=== PATIENT | female | born 1945 | race Caucasian/White ===

== ENCOUNTER 2016-09-21 20:38 | Emergency (ER) | payer OTHER ==
[2016-09-21 21:04] VITALS: BP 142/89; BMI 35.4
[2016-09-21] MEDS ORDERED: ZOFRAN INJ 4 MG VIAL IM ONE ×2 (22:20→23:14)
--- NOTE | 2016-09-21 22:23 | DR.GENAD ---
HPI - PCP Primary Care Physician: AUTUMN - HPI Comment HPI Comment: Started coughing intermittently 2-3 days ago with temp up to 101 today as well as sudden onset of n/v today which has persisted; no diarrhea or signficant abd pain; she is to start another round of chemo for nsclc tomorrow and s/w Dr Saul who advised her to come and have blood work. - Complaint/Symptoms Chief Complaint:: FEVER, THROWING UP Self Treatment fo Chief Complaint: TOOK TYLENOL APPROX ONE HOUR AGO - Source History Provided: Patient - Mode of Arrival Mode of Arrival: Ambulatory - Timing Onset of Chief Complaint: 09/21/16 PMH - PMH Past Medical History: Yes Past Medical History: Anxiety, Depression, Hypertension, Migraines Past Medical History Comment: CHEMO AND RADIATION FOR LUNG CANCER Past Surgical History: Yes Surgical History: Thyroidectomy - Family History History of Family Medical Conditions: Yes Family Medical History: Hypertension - Social History Does patient currently use any type of tobacco product: No Have you used tobacco products in the last 12 months: No Type of Tobacco Use: None Does any household member use tobacco: No Alcohol Use: None Do you use any recreational Drugs:: No Lives With: Alone Lives Where: Home - infectious screening In the last 2 months have you had wt loss of >10#?: NO Have you had fever, night sweats or hemotysis?: No Have you traveled outside the country in the last 6 months?: No Isolation: Standard PE - Vital Signs Vitals: Temperature 99.1 F Pulse Rate 97 Respiratory Rate 18 Blood Pressure [Left Arm] 137/77 Blood Pressure [Right Arm] 128/61 Blood Pressure 142/89 O2 Sat by Pulse Oximetry 97 Course - Reevaluation 1st: Improved (pt has held down kcl and wishes to go home) - Consultation Called: 23:16 Consultation Comments: Dr Saul prefers pt get ua/bc x 2 with addition of levaquin 500mg po x 10days as well as potassium repletion. ROR - Labs Reviewed Result Diagrams: 09/21/16 22:30 09/21/16 22:30 Laboratory: WBC 7.3 X10^3/uL (3.6-10.0) 09/21/16 22:30 RBC 3.86 X10^6/uL (3.5-5.4) 09/21/16 22:30 Hgb 12.2 g/dL (12.0-16.0) 09/21/16 22: Hct 35.7 % (36.0-47.0) L 09/21/16: MCV 92.6 fL (80.0-100.0) 09/21/16: MCH 31.6 pg (27.0-34.0) 09/21/16: MCHC 34.1 g/dL (33.0-35.0) 09/21/16: RDW 17.9 % (11.6-16.5) H 09/21/16:30 Plt Count 143 X10^3/uL (150.0-450.0) L 09/21/16: MPV 8.0 fL (7.4-11.0) 09/21/16: Neut % 83.8 % (42.0-75.0) H 09/21/16: Lymph % 8.3 % (21.0-51.0) L 09/21/16: [place] % 6.6 % (0.0-13.0) 09/21/16 22: Eos % 0.8 % (0.9-2.9) L 09/21/16: Baso % 0.5 % (0.2-1.0) 09/21/16:30 Neut # 6.1 x10^3/uL (2.2-4.8) H 09/21/16: Lymph # 0.6 X10^3/uL (1.3-2.9) L 09/21/16 22:30 [place] # 0.5 x10^3/uL (0.3-0.8) 09/21/16: Eos # 0.1 x10^3/uL (0.0-0.2) 09/21/16: Baso # 0.0 X10^3/uL (0.0-0.1) 09/21/16: Absolute Nucleated RBC 0.1 /100WBC 09/21/16 22: Sodium 140 mmol/L (136-145) 09/21/16: Corrected Sodium 140 mmol/L (136-145) 09/21/16 22:30 Potassium 2.6 mmol/L (3.5-5.1) L* 09/21/16 22:30 Chloride 99 mmol/L (98-107) 09/21/16 22:30 Carbon Dioxide 31.8 mmol/L (21-32) 09/21/16 22:30 BUN 13 mg/dL (7-18) 09/21/16 22:30 Creatinine 0.74 mg/dL (0.55-1.02) 09/21/16 22:30 Est GFR (MDRD) Af Amer > 60 (>60) 09/21/16 22:30 Est GFR (MDRD) Non-Af > 60 (>60) 09/21/16 22:30 Glucose 118 mg/dL (65-99) H 09/21/16 22:30 Calcium 8.8 mg/dL (8.5-10.1) 09/21/16 22:30 Corrected Calcium TNP 09/21/16 22:30 Total Bilirubin 1.60 mg/dL (0.2-1.0) H 09/21/16 22:30 AST 59 Units/L (15-37) H 09/21/16 22:30 ALT 38 Units/L (12-78) 09/21/16 22:30 Alkaline Phosphatase 111 Units/L (46-116) 09/21/16 22:30 Total Protein 7.5 g/dL (6.4-8.2) 09/21/16 22:30 Albumin 3.4 g/dL (3.4-5.0) 09/21/16 22:30 Globulin 4.1 g/dL (2.5-4.5) 09/21/16 22:30 Albumin/Globulin Ratio 0.8 Ratio (1.1-2.1) L 09/21/16 22:30 - Diagnosis Discharge Problem: Hypokalemia, Non-small cell lung cancer (NSCLC) Nausea & vomiting Qualifiers: Vomiting type: cyclical vomiting Vomiting Intractability: non-intractable Qualified Code(s): G43.A0 - Cyclical vomiting, not intractable - Discharge Plan Disposition: 01 HOME, SELF-CARE Condition: Stable Prescriptions: Levofloxacin [Levaquin] 500 mg PO Q24H #10 tab Ondansetron [Zofran Odt] 4 mg PO Q6H PRN #14 tab PRN Reason: - Follow ups/Referrals Follow ups/Referrals: SAMSON LEYVA [Primary Care Provider] - 3 days - Instructions Instructions: Nausea, Adult Additional Instructions: push fluids follow up with Dr Saul Thursday as scheduled try to take potassium tonight when you get home and again in the morning Additional Notes - Additional Notes Additional Notes: released home as pt felt better and was not throwing up; fup this morning with Dr Crandall as scheduled
[2016-09-21] MEDS ORDERED: ZOFRAN INJ 4 MG VIAL ONE ×2 (22:32→23:14)
[2016-09-21 22:39] LABS: BASOPHILS % (AUTO) 0.5 % (0.2-1.0); EOSINOPHILS # (AUTO) 0.1 x10^3/uL (0.0-0.2); EOSINOPHILS % (AUTO) 0.8 % (0.9-2.9); HEMATOCRIT 35.7 % (36.0-47.0); HEMOGLOBIN 12.2 g/dL (12.0-16.0); LYMPHOCYTES # (AUTO) 0.6 X10^3/uL (1.3-2.9); LYMPHOCYTES % (AUTO) 8.3 % (21.0-51.0); MEAN CORPUSCULAR HEMOGLOBIN 31.6 pg (27.0-34.0); MEAN CORPUSCULAR HGB CONC 34.1 g/dL (33.0-35.0); MEAN CORPUSCULAR VOLUME 92.6 fL (80.0-100.0); MONOCYTES # (AUTO) 0.5 x10^3/uL (0.3-0.8); MONOCYTES % (AUTO) 6.6 % (0.0-13.0); NEUTROPHILS # (AUTO) 6.1 x10^3/uL (2.2-4.8); NEUTROPHILS % (AUTO) 83.8 % (42.0-75.0); PLATELET COUNT 143 X10^3/uL (150.0-450.0); RED BLOOD COUNT 3.86 X10^6/uL (3.5-5.4); RED CELL DISTRIBUTION WIDTH 17.9 % (11.6-16.5); WHITE BLOOD COUNT 7.3 X10^3/uL (3.6-10.0)
[2016-09-21 22:44] LABS: BLOOD UREA NITROGEN 13 mg/dL (7-18); CALCIUM 8.8 mg/dL (8.5-10.1); CARBON DIOXIDE 31.8 mmol/L (21-32); CHLORIDE 99 mmol/L (98-107); COR NA(FOR HYPERGLY) 140 mmol/L (136-145); CREATININE 0.74 mg/dL (0.55-1.02); GLUCOSE 118 mg/dL (65-99); SODIUM 140 mmol/L (136-145); eGFR BLACK RACES > 60 (>60); eGFR NON BLACK RACES > 60 (>60)
[2016-09-21 22:49] LABS: ALANINE AMINOTRANSFERASE 38 Units/L (12-78); ALBUMIN 3.4 g/dL (3.4-5.0); ALKALINE PHOSPHATASE 111 Units/L (46-116); ASPARTATE AMINO TRANSFERASE 59 Units/L (15-37); TOTAL PROTEIN 7.5 g/dL (6.4-8.2)
[2016-09-21] MEDS ORDERED: POTASSIUM CHLORIDE LIQ 20 MEQ UDC PO ONE (23:14)
[2016-09-21] MEDS ORDERED: POTASSIUM CHLORIDE LIQ 20 MEQ UDC ONE (23:47)
== END 2016-09-22 00:29 | disposition home or self-care (01) ==
LOC: ER 20:38
DX: C34.90 Malignant neoplasm of unspecified part of unspecified bronchus or lung (principal); E87.6 Hypokalemia; G43.A0 Cyclical vomiting, in migraine, not intractable
CPT/HCPCS: 36415; 80053; 85025; 87040; 87077; 87186; 96372; 99283; J2405

== ENCOUNTER → 2017-01-01 | Outpatient (CLI) | payer OTHER ==
--- NOTE | 2017-01-02 11:08 | MG ---
HISTORY: SCREENING Comparison: Multiple mammograms dating back to August 29, 2014. FINDINGS: Bilateral CC and MLO projections of the right and left breast were obtained. Scattered fibroglandul ar tissue is seen to be present. No significant architectural distortion, mass or clustered microca lcifications can be observed to suggest malignancy. No skin thickening or nipple retraction is appr eciated. No pathological lymphadenopathy can be identified. Benign-appearing calcifications scatte red throughout the right and left breasts are observed. IMPRESSION: NO RADIOGRAPHIC EVIDENCE OF MALIGNANCY. ACR CATEGORY: 2 - benign findings. FOLLOW-UP EXAM 1 YEAR. Diagnostic CAD was utilized and reviewed. * 0 (ZERO) - ASSESSMENT INCOMPLETE; ADDITIONAL IMAGING IS NEEDED. * 1/1 (ONE) - NEGATIVE. * 2/II (TWO) - BENIGN FINDINGS. * 3/III (THREE) - PROBABLY BENIGN FINDING; SHORT INTERVAL FOLLOW-UP SUGGESTED. * 4/IV (FOUR) - SUSPICIOUS ABNORMALITY; BIOPSY SHOULD BE CONSIDERED. * 5/V - HIGHLY SUSPICIOUS OF MALIGNANCY; BIOPSY SHOULD BE PERFORMED. A NEGATIVE X-RAY REPORT SHOULD NOT DELAY BIOPSY IF A DOMINANT OR CLINICALLY SUSPICIOUS MASS IS PRESENT; 4 TO 8 PERCENT OF CANCERS ARE NOT IDENTIFIED BY X-RAY. A NEG ATIVE REPORT MAY REINFORCE THE CLINICAL IMPRESSION. ADENOSIS AND DENSE BREASTS MAY OBSCURE AN UNDER LYING NEOPLASM. Reported By:
== END ==
LOC: RAD 10:50
PROVIDERS: ATTEND Nurse Practitioner Family
DX: Z12.31 Encounter for screening mammogram for malignant neoplasm of breast (principal)
CPT/HCPCS: 77067

== ENCOUNTER 2017-02-28 21:06 | Emergency (ER) | payer OTHER ==
[2017-02-28 21:15] VITALS: BP 158/74; BMI 31.5
--- NOTE | 2017-02-28 21:40 | DR.EXTPAIN ---
HPI - Time seen Time seen: 21:40 - PCP Primary Care Physician: SAMSON Owen [place] - HPI Comment HPI Comment: WORSE TONIGHT. HAVE LUNG CANCER WITH RECENT TREATMENT. NO TRAUMA. COUGHING BUT NO FEVER. TOOK PAIN MED AT HOME WITHOUT RELIEF. - Complaint/Symptoms Chief Complaint Doctor Comments: INCREASING UPPER AND MID BACK PAIN TIMES 5 DAYS. Chief Complaint:: PT STATES, "I'VE HAD SEVERE BACK PAIN FOR 5 DAYS." PT DENIES INJURY OR TRAUMA. Self Treatment fo Chief Complaint: HOME PAIN MEDICATIONS HAVE NOT GIVEN ANY RELIEF - Nurses notes reviewed Nurses Notes Review: Yes - Source History Provided: Patient - Mode of arrival Mode of Arrival: Ambulatory - Timing Onset of Chief Complaint: 02/23/17 - Context History of: Arthritis - Associated signs and symptoms Associated Signs and Symptoms: Weakness, Pain, Cough, Headache, Shortness of Breath PMH - PMH Past Medical History: Yes Past Medical History: Anxiety, Depression, Hypertension, Migraines Past Medical History Comment: LUNG CA Past Surgical History: Yes Surgical History: Thyroidectomy Past Surgical History Comment: RIGHT LOWER LOBE OF LUNG REMOVED - Family History History of Family Medical Conditions: Yes Family Medical History: Hypertension - Social History Alcohol Use: None Do you use any recreational Drugs:: No Lives With: Family Lives Where: Home - infectious screening In the last 2 months have you had wt loss of >10#?: NO Have you had fever, night sweats or hemotysis?: No Have you traveled outside the country in the last 6 months?: No Isolation: Standard ROS - Review of Systems Constitutional: Weakness, Fatigue. negative: Chills, Fever Eyes: No Symptoms Reported. negative: Eye Pain, Discharge ENTM: No Symptoms Reported. negative: Ear Pain, Nose Discharge, Nose Congestion , Throat Pain Respiratoy: Non-Productive Cough, Short of Breath, Wheezing. negative: Productive Cough, Hemoptysis Cardiovascular: Chest Pain Gastrointestinal/Abdominal: negative: Abdominal Pain, Diarrhea, Nausea, Vomiting Genitourinary: negative: Dysuria, Hematuria Neurological: No Symptoms Reported, Headache, Weakness, Dizziness Musculoskeletal: Back Pain, Muscle Pain, Back Integumentary: Change in Color Hematologic/Lymphatic: No Symptoms Reported Endocrine: No Symptoms Reported All Other Systems: Reviewed and Negative PE - Vital Signs Vitals: Temperature 98.2 F Pulse Rate 94 Respiratory Rate 20 Blood Pressure [Left Arm] 137/77 Blood Pressure [Right Arm] 128/61 Blood Pressure 158/74 O2 Sat by Pulse Oximetry 97 - General Limitations: No Limitations General Appearance: Alert - Head Head Exam: Normal Inspection - Eyes Eye exam: Normal Appearance - ENT ENT Exam: Normal External Ear Exam - Neck Neck Exam: Trachea Midline. negative: Tenderness, Meningismus, Lymphadenopathy - Chest Chest Inspection: Symmetric Chest Wall Rise - Respiratory Respiratory Exam: Normal Lung Sounds Bilat Respiratory Exam: Bilateral Wheezing, Bilateral Rhonchi, Upper Rhonchi, Lower Wheezing, Lower Rhonchi - Cardiovascular Cardiovascular Exam: Regular Rate, Normal Rhythm, Normal Heart Sounds - Abdominal Exam Abdominal Exam: Normal Bowel Sounds, Soft. negative: Tenderness - Back Back Exam: Paraspinal Tenderness, Vertebral Tenderness (UPPER AND MID BACK) - Neurological Neurological Exam: Alert, Oriented X3 - Psychiatric Psychiatric Exam: Normal Affect, Normal Mood - Skin Skin Exam: Normal Color MDM - Differential Diagnosis Differential Diagnosis: Fracture, Neurovascular Injury, Other (MUSCLE SPASM, LUNG CA, SPINE METS FROM CANCER. ) Course - Treatment Treatment: SEE ORDERS. IM PAIN MED IN ED. - Education/Counseling Education/Counseling: Patient, Family, Education Educated On: Treatment, Diagnosis, Needs for Follow Up ROR - Labs Reviewed Laboratory Results Reviewed?: Yes Result Diagrams: 02/28/17 22:30 02/28/17 22:30 Laboratory: WBC 8.0 X10^3/uL (3.6-10.0) 02/28/17 22:30 RBC 3.77 X10^6/uL (3.5-5.4) 02/28/17 22:30 Hgb 10.8 g/dL (12.0-16.0) L 02/28/17 22:30 Hct 32.1 % (36.0-47.0) L 02/28/17 22:30 MCV 85.0 fL (80.0-100.0) 02/28/17 22:30 MCH 28.5 pg (27.0-34.0) 02/28/17 22:30 MCHC 33.5 g/dL (33.0-35.0) 02/28/17 22:30 RDW 13.8 % (11.6-16.5) 02/28/17 22:30 Plt Count 248 X10^3/uL (150.0-450.0) 02/28/17 22:30 MPV 7.3 fL (7.4-11.0) L 02/28/17 22:30 Neut % 83.3 % (42.0-75.0) H 02/28/17 22:30 Lymph % 5.0 % (21.0-51.0) L 02/28/17 22:30 [place] % 7.2 % (0.0-13.0) 02/28/17 22:30 Eos % 3.7 % (0.9-2.9) H 02/28/17 22:30 Baso % 0.8 % (0.2-1.0) 02/28/17 22:30 Neut # 6.7 x10^3/uL (2.2-4.8) H 02/28/17 22:30 Lymph # 0.4 X10^3/uL (1.3-2.9) L 02/28/17 22:30 [place] # 0.6 x10^3/uL (0.3-0.8) 02/28/17 22:30 Eos # 0.3 x10^3/uL (0.0-0.2) H 02/28/17 22:30 Baso # 0.1 X10^3/uL (0.0-0.1) 02/28/17 22:30 Absolute Nucleated RBC 0.0 /100WBC 02/28/17 22:30 Sodium 139 mmol/L (136-145) 02/28/17 22:30 Corrected Sodium TNP 02/28/17 22:30 Potassium 3.6 mmol/L (3.5-5.1) 02/28/17 22:30 Chloride 101 mmol/L (98-107) 02/28/17 22:30 Carbon Dioxide 35.9 mmol/L (21-32) H 02/28/17 22:30 BUN 14 mg/dL (7-18) 02/28/17 22:30 Creatinine 0.88 mg/dL (0.55-1.02) 02/28/17 22:30 Est GFR (MDRD) Af Amer > 60 (>60) 02/28/17 22:30 Est GFR (MDRD) Non-Af > 60 (>60) 02/28/17 22:30 Glucose 102 mg/dL (65-99) H 02/28/17 22:30 Calcium 9.1 mg/dL (8.5-10.1) 02/28/17 22:30 Corrected Calcium 10.3 mg/dL (8.5-10.1) H 02/28/17 22:30 Total Bilirubin 0.30 mg/dL (0.2-1.0) 02/28/17 22:30 AST 15 Units/L (15-37) 02/28/17 22:30 ALT 11 Units/L (12-78) L 02/28/17 22:30 Alkaline Phosphatase 120 Units/L (46-116) H 02/28/17 22:30 Creatine Kinase 19 Units/L (26-192) L 02/28/17 22:30 CK-MB (CK-2) < 1.0 ng/mL (0-4.0) 02/28/17 22:30 CK/CKMB % Calc 5.3 % (<4) 02/28/17 22:30 Troponin I < 0.02 ng/mL (0-1.5) 02/28/17 22:30 Total Protein 7.3 g/dL (6.4-8.2) 02/28/17 22:30 Albumin 2.5 g/dL (3.4-5.0) L 02/28/17 22:30 Globulin 4.8 g/dL (2.5-4.5) H 02/28/17 22:30 Albumin/Globulin Ratio 0.5 Ratio (1.1-2.1) L 02/28/17 22:30 - XRAY XRAY Interpreted by: Radiologist XRAY Findings: REPORT DISCUSS WITH PATIENT AND FAMILY. - EKG Rhythm: NSR - Diagnosis Discharge Problem: Compression fracture of thoracic spine, non-traumatic, Lung cancer Thoracic back pain Qualifiers: Chronicity: acute Back pain laterality: unspecified Qualified Code(s): M54.6 - Pain in thoracic spine - Discharge Plan Disposition: 01 HOME, SELF-CARE Condition: Stable - Follow ups/Referrals Follow ups/Referrals: DIVINA MCRAE [Primary Care Provider] - 2 days - Instructions Instructions: Back Pain, Adult, [id number], Spinal Compression Fracture Additional Instructions: RETURN TO ED IF WORSE.
[2017-02-28] MEDS ORDERED: ZOFRAN INJ 4 MG VIAL IM ONE (21:57)
[2017-02-28] MEDS ORDERED: DEMEROL INJ IM ONE (21:57)
[2017-02-28] MEDS ORDERED: DEMEROL INJ ONE (22:00)
[2017-02-28] MEDS ORDERED: ZOFRAN INJ 4 MG VIAL ONE (22:00)
--- NOTE | 2017-02-28 22:35 | CT ---
EXAM: CT THORACIC SPINE WITHOUT CONTRAST INDICATION: Severe back pain, lung cancer COMPARISION: No priors TECHNIQUE: Axial CT examination of the thoracic spine was performed without intravenous contrast. Coronal and sa gittal planes were reconstructed using the axial data. FINDINGS: There are multiple sclerotic intraosseous lesions. Round sclerotic lesions are present at T8, T9,, an d T12. Inferior endplate Schmorl's node is present at T10. There is a compression fracture at T8 with loss of approximately 50% mid vertebral body height. No retropulsed fracture fragments. The central canal is patent. The facets are intact. There is a large right pleural effusion and significant volum e loss throughout the right lung. IMPRESSION: The sclerotic lesions in the thoracic vertebrae are consistent with metastatic foci. There is a compr ession fracture of T8, age indeterminate. No retropulsed fracture fragments. Reported By:
[2017-02-28 22:39] LABS: BASOPHILS # (AUTO) 0.1 X10^3/uL (0.0-0.1); BASOPHILS % (AUTO) 0.8 % (0.2-1.0); EOSINOPHILS # (AUTO) 0.3 x10^3/uL (0.0-0.2); EOSINOPHILS % (AUTO) 3.7 % (0.9-2.9); HEMATOCRIT 32.1 % (36.0-47.0); HEMOGLOBIN 10.8 g/dL (12.0-16.0); LYMPHOCYTES # (AUTO) 0.4 X10^3/uL (1.3-2.9); MEAN CORPUSCULAR HEMOGLOBIN 28.5 pg (27.0-34.0); MEAN CORPUSCULAR HGB CONC 33.5 g/dL (33.0-35.0); MEAN PLATELET VOLUME 7.3 fL (7.4-11.0); MONOCYTES # (AUTO) 0.6 x10^3/uL (0.3-0.8); MONOCYTES % (AUTO) 7.2 % (0.0-13.0); NEUTROPHILS # (AUTO) 6.7 x10^3/uL (2.2-4.8); NEUTROPHILS % (AUTO) 83.3 % (42.0-75.0); PLATELET COUNT 248 X10^3/uL (150.0-450.0); RED BLOOD COUNT 3.77 X10^6/uL (3.5-5.4); RED CELL DISTRIBUTION WIDTH 13.8 % (11.6-16.5)
[2017-02-28 22:56] LABS: BLOOD UREA NITROGEN 14 mg/dL (7-18); CALCIUM 9.1 mg/dL (8.5-10.1); CARBON DIOXIDE 35.9 mmol/L (21-32); CHLORIDE 101 mmol/L (98-107); CREATININE 0.88 mg/dL (0.55-1.02); SODIUM 139 mmol/L (136-145); TROPONIN I < 0.02 ng/mL (0-1.5); eGFR BLACK RACES > 60 (>60); eGFR NON BLACK RACES > 60 (>60)
[2017-02-28 23:00] LABS: ALANINE AMINOTRANSFERASE 11 Units/L (12-78); ALBUMIN 2.5 g/dL (3.4-5.0); ALKALINE PHOSPHATASE 120 Units/L (46-116); ASPARTATE AMINO TRANSFERASE 15 Units/L (15-37); CKMB % 5.3 % (<4); COR CA(FOR HYPOALB) 10.3 mg/dL (8.5-10.1); CREATINE KINASE 19 Units/L (26-192); CREATINE KINASE MB < 1.0 ng/mL (0-4.0); TOTAL PROTEIN 7.3 g/dL (6.4-8.2)
[2017-02-28] MEDS ORDERED: DUONEB 0.5 MG/3 MG NEB ONE (23:11)
[2017-02-28] MEDS ORDERED: DUONEB 0.5 MG/3 MG ONE (23:20)
== END 2017-02-28 23:40 | disposition home or self-care (01) ==
LOC: ER 21:06
DX: S22.000A Wedge compression fracture of unspecified thoracic vertebra, initial encounter for closed fracture (principal); D14.30 Benign neoplasm of unspecified bronchus and lung; M54.6 Pain in thoracic spine; Y33.XXXA Other specified events, undetermined intent, initial encounter; Y92.9 Unspecified place or not applicable
CPT/HCPCS: 36415; 72128; 80053; 82550; 82553; 84484; 85025; 93005; 93010; 94640; 96372; 99283; J2175; J2405; J7620

== ENCOUNTER 2017-03-03 23:35 | Emergency (ER) | payer OTHER ==
[2017-03-03 23:46] VITALS: BP 144/62; BMI 31.5
--- NOTE | 2017-03-04 00:13 | DR.GENAD ---
HPI - PCP Primary Care Physician: CLEMENTINA - Complaint/Symptoms Chief Complaint:: DAUGHTER Genoveva PHIPPS STATES" SHE WAS SITTING ON THE SIDE OF THE BED AND FELL AND HIT HER HEAD ON NIGHT STAND. SHE'S WHEEZING AND HER BLOOD PRESSURE HAS BEEN UP" - Source History Provided: Patient - Mode of Arrival Mode of Arrival: Wheelchair - Timing Onset of Chief Complaint: 03/03/17 PMH - PMH Past Medical History: Yes Past Medical History: Anxiety, Depression, Hypertension, Migraines Past Medical History Comment: LUNG CA Past Surgical History: Yes Surgical History: Thyroidectomy Past Surgical History Comment: RT LOWER LOBE OF LUNG REMOVED - Family History History of Family Medical Conditions: Yes Family Medical History: Hypertension - Social History Does patient currently use any type of tobacco product: No Have you used tobacco products in the last 12 months: No Type of Tobacco Use: None Does any household member use tobacco: No Alcohol Use: None Do you use any recreational Drugs:: No Lives With: Family Lives Where: Home - infectious screening In the last 2 months have you had wt loss of >10#?: NO Have you had fever, night sweats or hemotysis?: No Have you traveled outside the country in the last 6 months?: No Isolation: Standard ROS - Review of Systems Eyes: No Symptoms Reported ENTM: No Symptoms Reported Respiratoy: No Symptoms Reported Cardiovascular: No Symptoms Reported Gastrointestinal/Abdominal: No Symptoms Reported Genitourinary: No Symptoms Reported Neurological: No Symptoms Reported Musculoskeletal: No Symptoms Reported Integumentary: No Symptoms Reported Hematologic/Lymphatic: No Symptoms Reported Endocrine: No Symptoms Reported Psychiatric: No Symptoms Reported All Other Systems: Reviewed and Negative PE - Vital Signs Vitals: Temperature 98.6 F Pulse Rate 83 Respiratory Rate 22 Blood Pressure [Left Arm] 137/77 Blood Pressure [Right Arm] 128/61 Blood Pressure 144/62 O2 Sat by Pulse Oximetry 91 - General Limitations: No Limitations General Appearance: Alert, In No Apparent Distress - Head Head Exam: Normal Inspection, Atraumatic - Eyes Eye exam: Normal Appearance, PERRL, EOMI - ENT ENT Exam: Normal Exam, Normal Oropharynx External Ear Exam: Normal External Inspection, Auricular Hematoma TM/Canal Exam: Bilateral Normal Nose Exam: Normal Nose Exam Mouth Exam: Normal Inspection Throat Exam: Normal Inspection - Neck Neck Exam: Normal Inspection - Chest Chest Inspection: Normal Inspection - Respiratory Respiratory Exam: Normal Lung Sounds Bilat Respiratory Exam: Bilateral Clear to Auscultation - Cardiovascular Cardiovascular Exam: Regular Rate, Normal Rhythm - Abdominal Exam Abdominal Exam: Normal Inspection Abdominal Tenderness: negative: RUQ, RLQ, LUQ, LLQ, Epigastrium, Suprapubic, Diffuse, Mild, Moderate, Severe, Other - Extremities Extremities Exam: Normal Inspection - Back Back Exam: Normal Inspection, Full ROM - Neurologic Neurological Exam: Alert, Oriented X3, CN II-XII Intact - Psychiatric Psychiatric Exam: Normal Affect - Skin Skin Exam: Warm, Dry, Intact Course - Treatment Treatment: Treatment options discussed. Family wants be treated in [place] where other family members and ease of visitation. ROR - XRAY XRAY Interpreted by: Radiologist (Chest x ray: There is opacification of the right candida thorax and near complete collapse of the right lung. Right trevor catheter tip is in the superior vena cava. Heart size is within nromal limits. There is a mass in the left lung measuring 5cm in diameter. In pneumothorax.The regional skeleton is intact. Impression: Lartge right pleural effusion with near complete collapse of the right lung. There is a 5dm mass in the left lung.) - Diagnosis Discharge Problem: Large Right pleural effusion, A 5cm Mass Left Lung Field, Advanced DJD Lumbar Spine - Discharge Plan Condition: Stable - Follow ups/Referrals Follow ups/Referrals: NFD,None [Primary Care Provider] - 3 days - Instructions
--- NOTE | 2017-03-04 00:55 | CT ---
EXAM: CT LUMBAR SPINE WITHOUT CONTRAST INDICATION: Low back pain COMPARISION: No priors TECHNIQUE: Axial CT examination of the lumbar spine was performed without intravenous contrast. Coronal and sagi ttal planes were reconstructed using the axial data. FINDINGS: Advanced degenerative disc changes are present at L2-3. Milder changes are seen in the remainder of t he lumbar spine. No acute fracture or subluxation. Vertebral body heights are preserved and normally aligned. Degenerative facet changes are seen throughout the lumbar levels. The central canal is paten t. The surrounding soft tissues appear unremarkable. IMPRESSION: Advanced degenerative disc changes noted at L2-3. No acute abnormality. Reported By:
--- NOTE | 2017-03-04 00:57 | RAD ---
EXAM: Chest X-ray INDICATION: Shortness of breath COMPARISION: Prior CT from May 23, 2016 TECHNIQUE: AP, single view FINDINGS: There is opacification of the right candida thorax and near complete collapse of the right lung. Right p daryl catheter tip is in the superior vena cava. Heart size is within normal limits. There is a mass i n the left lung measuring 5 cm in diameter. Is no pneumothorax. The regional skeleton is intact. IMPRESSION: Large right pleural effusion with near-complete collapse of the right lung. There is a 5 cm mass in t he left lung. Reported By:
== END 2017-03-04 01:41 | disposition home or self-care (01) ==
LOC: ER 23:51
DX: J90 Pleural effusion, not elsewhere classified (principal); R91.8 Other nonspecific abnormal finding of lung field; M51.36 Other intervertebral disc degeneration, lumbar region; W01.198A Fall on same level from slipping, tripping and stumbling with subsequent striking against other object, initial encounter; Y92.9 Unspecified place or not applicable
CPT/HCPCS: 71010; 72131; 99282